=== PATIENT | male | born 1990 | race Caucasian/White ===

== ENCOUNTER 2017-02-19 14:22 | Emergency (ER) | payer BC, MEDICAID ==
[~2017-02-19] VITALS: Ht 182.9 cm; Wt 81.6 kg
[~2017-02-19 14:22] MED LIST: BONIVA150 MG ORAL; CLONIDINE HCL0.1 MG PO; DEPAKOTE250 MG PO; LAMICTAL25 MG PO; PEPCID20 MG ORAL; PHENERGAN6.25 MG/5 ORAL; RANITIDINE HCL150 MG ORAL; RISPERDAL2 MG PO; THORAZINE10 MG PO
[2017-02-19 14:36] VITALS: BP 134/65
--- NOTE | 2017-02-19 14:56 | Emergency Room Report ---
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 Patient the past 2-3 days has been spiking fevers Patient was given 1 Aleve And was brought to the emergency room Patient has had previous lobectomy secondary to pneumonia Patient has been having a cough There was no reports of diarrhea however the patient did have 3 episodes of vomiting throughout the day yesterday Patient himself has autism and history is limited from the patient Allergies: Coded Allergies: No Known Allergies (Unverified , 04/25/12) Patient History Limited by: medical condition Past Medical History: see triage record Pertinent Family History: unable to obtain Reviewed Nursing Documentation: PMH: Agreed, PSxH: Agreed Nursing Documentation-PMH Hx Diabetes: Yes Hx Seizures: Yes Review of Systems All Other Systems: limited - Other than the ones mentioned in the history of present illness all others are reviewed however they do stay limited due to the patient's mental status Physical Exam Vital Signs Date Time Temp Pulse Resp B/P (MAP) Pulse Ox O2 Delivery O2 Flow Rate FiO2 02/19/17 14:26 98.8 118 18 134/65 98 Room Air Sp02 EP Interpretation: reviewed, normal General Appearance: no apparent distress Head: normocephalic, atraumatic Eyes: bilateral eye PERRL, bilateral eye EOMI ENT: normal pharynx Neck: full range of motion, supple Respiratory: no respiratory distress, no retraction, crackles - in both lower lobes Cardiovascular #1: regular rate, rhythm Gastrointestinal: non tender, soft, no mass Musculoskeletal: normal inspection Neurologic: alert, responsive, abrasive grinder III-XII nml as tested Skin: other - Patient has several abrasions throughout, including the hands, family reports that these are not healing as normally as usual Lymphatic: no adenopathy Medical Decision Making Diagnostic Impression: Primary Impression: Pneumonia ER Course Multiple differentials considered Including but not limited to pneumonia, pharyngitis, appendicitis Patient chest x-ray shows bilateral infiltrates right side greater than left Patient was provided with IV antibiotics At this time blood work is appropriate sodium was minimally low Patient's fever has gone down to 99 respirations continued to be appropriate Patient saturating well no signs of any respiratory distress I did recommend initially admission to the hospital family reported the patient does not do well with hospitalization given the patient's appropriate breathing given the improvement with acute intervention will have initial outpatient trial Family will return with any changes or concerns Labs Test 02/19/17 15:26 White Blood Count 8.0 K/UL (4.8-10.8) Red Blood Count 4.70 M/UL (4.70-6.10) Hemoglobin 15.2 G/DL (14.2-18.0) Hematocrit 43.2 % (42.0-52.0) Mean Corpuscular Volume 92 FL (80-99) Mean Corpuscular Hemoglobin 32.4 PG (27.0-31.0) Mean Corpuscular Hemoglobin Concent 35.2 G/DL (32.0-36.0) Red Cell Distribution Width 11.0 % (11.6-14.8) Platelet Count 71 K/UL (150-450) Mean Platelet Volume 8.7 FL (6.5-10.1) Neutrophils (%) (Auto) % (45.0-75.0) Lymphocytes (%) (Auto) % (20.0-45.0) Monocytes (%) (Auto) % (1.0-10.0) Eosinophils (%) (Auto) % (0.0-3.0) Basophils (%) (Auto) % (0.0-2.0) Differential Total Cells Counted 100 Neutrophils % (Manual) 28 % (45-75) Lymphocytes % (Manual) 7 % (20-45) Monocytes % (Manual) 14 % (1-10) Eosinophils % (Manual) 0 % (0-3) Basophils % (Manual) 0 % (0-2) Band Neutrophils 51 % (0-8) Platelet Estimate Decreased Platelet Morphology Normal Red Blood Cell Morphology Anisocytosis 1+ Urine Color Brown Urine Appearance Clear Urine pH 6.5 (4.5-8.0) Urine Specific [place] 1.010 (1.005-1.035) Urine Protein 1+ (NEGATIVE) Urine Glucose (UA) Negative (NEGATIVE) Urine Ketones 2+ (NEGATIVE) Urine Occult Blood 4+ (NEGATIVE) Urine Nitrite Negative (NEGATIVE) Urine Bilirubin 1+ (NEGATIVE) Urine Ictotest Negative Urine Urobilinogen 12 MG/DL (0.0-1.0) Urine Leukocyte Esterase 1+ (NEGATIVE) Urine RBC 5-10 /HPF (0 - 0) Urine WBC 2-4 /HPF (0 - 0) Urine Squamous Epithelial Cells None /LPF (NONE/OCC) Urine Amorphous Sediment Few /LPF (NONE) Urine Bacteria Few /HPF (NONE) Sodium Level 126 MMOL/L (136-145) Potassium Level 3.7 MMOL/L (3.5-5.1) Chloride Level 90 MMOL/L (98-107) Carbon Dioxide Level 25 MMOL/L (21-32) Anion Gap 11 mmol/L (5-15) Blood Urea Nitrogen 15 mg/dL (7-18) Creatinine 1.1 MG/DL (0.55-1.30) Estimat Glomerular Filtration Rate > 60 mL/min (>60) Glucose Level 109 MG/DL (74-106) Lactic Acid Level 1.00 mmol/L (0.66-2.22) Calcium Level 9.2 MG/DL (8.5-10.1) Total Bilirubin 0.5 MG/DL (0.2-1.0) Aspartate Amino Transf (AST/SGOT) 41 U/L (15-37) Alanine Aminotransferase (ALT/SGPT) 29 U/L (12-78) Alkaline Phosphatase 59 U/L (46-116) Total Protein 7.8 G/DL (6.4-8.2) Albumin 3.8 G/DL (3.4-5.0) Globulin 4.0 g/dL Albumin/Globulin Ratio 0.9 (1.0-2.7) Rhythm Strip Diag. Results EP Interpretation: yes Rate: 67 Rhythm: NSR, no PVC's, no ectopy Chest X-Ray Diagnostic Results Chest X-Ray Diagnostic Results : Chest X-Ray Ordered: Yes # of Views/Limited/Complete: 1 View Indication: Shortness of Breath EP Interpretation: Yes Interpretation: no effusion, no pneumothorax, other - Bilateral lower infiltrates right greater than left Impression: Other - bilateral pneumonia Electronically Signed by: Vida Sanchez DO Last Vital Signs Date Time Temp Pulse Resp B/P (MAP) Pulse Ox O2 Delivery O2 Flow Rate FiO2 02/19/17 14:26 98.8 118 18 134/65 98 Room Air Status: improved Disposition: HOME, SELF-CARE Condition: Improved Scripts Ibuprofen* (MOTRIN*) 600 Mg Tablet 600 MG ORAL Q8H Y for For Pain, #30 TAB 0 Refills Prov: VIDA SANCHEZ D.OVj 02/19/17 Levofloxacin* (LEVAQUIN*) 750 Mg Tablet 750 MG ORAL DAILY for 10 Days, #10 TAB Prov: VIDA SANCHEZ D.O. 02/19/17 Additional Instructions: Patient is provided with the discharge instructions notified to follow up with primary doctor in the next 2-3 days otherwise return to the er with any worsening symptoms. Please note that this report is being documented using [employer] technology. This can lead to erroneous entry secondary to incorrect interpretation by the dictating instrument. VIDA SANCHEZ D.O. Feb 19, 2017 14:56
[2017-02-19] MEDS ORDERED: Acetaminophen 500mg (ES) tab ORAL ONE (15:00)
[2017-02-19 15:43] LABS: MEAN CORPUSCULAR HEMOGLOBIN 32.4 PG (27.0-31.0); MEAN CORPUSCULAR HGB CONC 35.2 G/DL (32.0-36.0); MEAN CORPUSCULAR VOLUME 92 FL (80-99); MEAN PLATELET VOLUME 8.7 FL (6.5-10.1); PLATELET COUNT 71 K/UL (150-450)
[2017-02-19 16:15] LABS: APPEARANCE,URINE CLEAR; KETONES,URINE 2+ (NEGATIVE); LEUKOCYTE ESTERASE ,URINE 1+ (NEGATIVE); NITRITE,URINE NEGATIVE (NEGATIVE); PH,URINE 6.5 (4.5-8.0); PROTEIN,URINE 1+ (NEGATIVE); UROBILINOGEN,URINE 12 MG/DL (0.0-1.0)
[2017-02-19 16:30] VITALS: BP 142/64
[2017-02-19 16:31] LABS: AMORPHOUS SEDIMENT,UR FEW /LPF; BACTERIA,URINE FEW /HPF
[2017-02-19 16:37] LABS: ICTOTEST NEGATIVE
--- NOTE | 2017-02-19 16:38 | Diagnostic Imaging Report ---
Indication: SOB Technique: One view of the chest Comparison: 10/09/2013 Findings: Interim development of dense consolidation of the right lung base, less extensive but still significant consolidation of the left mid and lower lung. No definite associated effusions. Normal heart size Impression: Bilateral right greater than left infiltrates, most likely representing pneumonia
[2017-02-19 16:44] LABS: ALANINE AMINOTRANSFERASE 29 U/L (12-78); ALBUMIN/GLOBULIN RATIO 0.9 (1.0-2.7); ANION GAP 11 mmol/L (5-15); ASPARTATE AMINO TRANSFERASE 41 U/L (15-37); CALCIUM 9.2 MG/DL (8.5-10.1); CARBON DIOXIDE 25 MMOL/L (21-32); CHLORIDE 90 MMOL/L (98-107); CREATININE 1.1 MG/DL (0.55-1.30); GLOMERULAR FILTRATION RATE > 60 mL/min (>60); POTASSIUM 3.7 MMOL/L (3.5-5.1); SODIUM 126 MMOL/L (136-145); TOTAL PROTEIN 7.8 G/DL (6.4-8.2)
[2017-02-19] MEDS ORDERED: IBUPROFEN600 MG ORAL (17:14)
[2017-02-19] MEDS ORDERED: LEVAQUIN750 MG ORAL (17:14)
[2017-02-19 17:30] VITALS: BP 140/65
[2017-02-19 17:43] LABS: BAND NEUTROPHILS % (MANUAL) 51 % (0-8); LYMPHOCYTES % (MANUAL) 7 % (20-45); NEUTROPHILS % (MANUAL) 28 % (45-75); TOTAL CELLS COUNTED 100
[2017-02-19 17:48] LABS: ANISOCYTOSIS 1+; BASOPHILS % (MANUAL) 0 % (0-2); EOSINOPHILS % (MANUAL) 0 % (0-3); PLATELET ESTIMATE DECREASED; PLATELET MORPHOLOGY NORMAL
== END 2017-02-19 17:30 | disposition home or self-care (01) ==
LOC: EMR 15:00
DX: J18.9 Pneumonia, unspecified organism (principal); E11.9 Type 2 diabetes mellitus without complications; S60.512A Abrasion of left hand, initial encounter; S60.511A Abrasion of right hand, initial encounter; X58.XXXA Exposure to other specified factors, initial encounter; Y92.9 Unspecified place or not applicable
CPT/HCPCS: 36415; 71010; 80053; 81003; 83605; 85007; 85025; 87040; 96361; 96365; 96366; 99284; J1956

== ENCOUNTER 2017-07-05 20:03 | Emergency (ER) | payer MEDICAID ==
[~2017-07-05] VITALS: Ht 185.4 cm; Wt 83.9 kg
[~2017-07-05 20:03] MED LIST changes: +IBUPROFEN600 MG ORAL; +LEVAQUIN750 MG ORAL
[2017-07-05 20:15] VITALS: BP 150/84
[2017-07-05 20:59] LABS: BASOPHILS % (AUTO) 1.1 % (0.0-2.0); EOSINOPHILS % (AUTO) 0.9 % (0.0-3.0); HEMOGLOBIN 14.9 G/DL (14.2-18.0); LYMPHOCYTES % (AUTO) 21.6 % (20.0-45.0); MEAN CORPUSCULAR VOLUME 88 FL (80-99); MONOCYTES % (AUTO) 17.8 % (1.0-10.0); NEUTROPHILS % (AUTO) 58.7 % (45.0-75.0); PLATELET COUNT 122 K/UL (150-450); RED BLOOD COUNT 4.55 M/UL (4.70-6.10); RED CELL DISTRIBUTION WIDTH 11.2 % (11.6-14.8); WHITE BLOOD COUNT 9.2 K/UL (4.8-10.8)
[2017-07-05 21:15] LABS: ANION GAP 8 mmol/L (5-15); BLOOD UREA NITROGEN 10 mg/dL (7-18); CALCIUM 8.4 MG/DL (8.5-10.1); CARBON DIOXIDE 27 MMOL/L (21-32); CHLORIDE 88 MMOL/L (98-107); CREATININE 0.6 MG/DL (0.55-1.30); POTASSIUM 3.4 MMOL/L (3.5-5.1); SODIUM 123 MMOL/L (136-145)
[2017-07-05 21:21] LABS: ALANINE AMINOTRANSFERASE 18 U/L (12-78); ALBUMIN 3.7 G/DL (3.4-5.0); ALBUMIN/GLOBULIN RATIO 1.1 (1.0-2.7); ALKALINE PHOSPHATASE 91 U/L (46-116); ASPARTATE AMINO TRANSFERASE 25 U/L (15-37); BILIRUBIN,TOTAL 0.3 MG/DL (0.2-1.0); CKMB 2.4 NG/ML (0.0-3.6); CREATINE KINASE 234 U/L (26-308)
[2017-07-05] MEDS ORDERED: LEVAQUIN750 MG ORAL (21:24)
[2017-07-05] MEDS ORDERED: Levofloxacin 500mg tab ORAL ONE (21:30)
[2017-07-05 21:40] VITALS: BP 148/82
[2017-07-05 21:50] VITALS: BP 148/82
--- NOTE | 2017-07-06 10:43 | Emergency Room Report ---
History of Present Illness General Chief Complaint: Flu Like Symptoms Source: Patient Present Illness HPI Patient presents by family for report of questionable fever and chills that happened several days ago Patient has had mild cough Had recent pneumonia and bacteremia At that time mom had waited for several weeks So with this episode she presented more quickly There was no reports of loss of consciousness Patient himself has developmental delay and not up to provide full history History is obtained from family No reports of rash Allergies: Coded Allergies: No Known Allergies (Unverified , 04/25/12) Patient History Limited by: medical condition Past Medical History: see triage record Pertinent Family History: none Reviewed Nursing Documentation: PMH: Agreed, PSxH: Agreed Nursing Documentation-PMH Hx Seizures: Yes Review of Systems All Other Systems: negative except mentioned in HPI Physical Exam Vital Signs Date Time Temp Pulse Resp B/P (MAP) Pulse Ox O2 Delivery O2 Flow Rate FiO2 07/05/17 20:06 97.7 98 18 164/85 98 Room Air 97.7 Sp02 EP Interpretation: reviewed, normal General Appearance: well appearing, no apparent distress Head: normocephalic, atraumatic Eyes: bilateral eye PERRL, bilateral eye EOMI ENT: hearing grossly normal, normal pharynx, TMs + canals normal, uvula midline Neck: full range of motion, supple, no meningismus, no bony tend Respiratory: lungs clear, normal breath sounds, no rhonchi, no respiratory distress, no retraction, no accessory muscle use Cardiovascular #1: normal peripheral pulses, regular rate, rhythm, no edema, no gallop, no JVD, no murmur Gastrointestinal: normal bowel sounds, non tender, soft, no mass, no organomegaly, non-distended, no guarding, no hernia, no pulsatile mass, no rebound Genitourinary: no CVA tenderness Musculoskeletal: normal inspection Neurologic: responsive, motor strength/tone normal, sensory intact Psychiatric: mood/affect normal Skin: warm/dry, palpation normal Lymphatic: normal inspection, no adenopathy Medical Decision Making Diagnostic Impression: Primary Impression: Pneumonia ER Course Patient had previous bilateral infiltrates With the presentation multiple imaging and initial blood work is initiated X-ray shows improved findings from previous blood work is at baseline levels Given the patient's clinical presentation he is diagnosed with clinical required pneumonia and placed on antibiotics for close outpatient follow-up Labs Test 07/05/17 20:35 White Blood Count 9.2 K/UL (4.8-10.8) Red Blood Count 4.55 M/UL (4.70-6.10) Hemoglobin 14.9 G/DL (14.2-18.0) Hematocrit 40.0 % (42.0-52.0) Mean Corpuscular Volume 88 FL (80-99) Mean Corpuscular Hemoglobin 32.7 PG (27.0-31.0) Mean Corpuscular Hemoglobin Concent 37.2 G/DL (32.0-36.0) Red Cell Distribution Width 11.2 % (11.6-14.8) Platelet Count 122 K/UL (150-450) Mean Platelet Volume 8.6 FL (6.5-10.1) Neutrophils (%) (Auto) 58.7 % (45.0-75.0) Lymphocytes (%) (Auto) 21.6 % (20.0-45.0) Monocytes (%) (Auto) 17.8 % (1.0-10.0) Eosinophils (%) (Auto) 0.9 % (0.0-3.0) Basophils (%) (Auto) 1.1 % (0.0-2.0) Sodium Level 123 MMOL/L (136-145) Potassium Level 3.4 MMOL/L (3.5-5.1) Chloride Level 88 MMOL/L (98-107) Carbon Dioxide Level 27 MMOL/L (21-32) Anion Gap 8 mmol/L (5-15) Blood Urea Nitrogen 10 mg/dL (7-18) Creatinine 0.6 MG/DL (0.55-1.30) Estimat Glomerular Filtration Rate > 60 mL/min (>60) Glucose Level 119 MG/DL (74-106) Calcium Level 8.4 MG/DL (8.5-10.1) Total Bilirubin 0.3 MG/DL (0.2-1.0) Aspartate Amino Transf (AST/SGOT) 25 U/L (15-37) Alanine Aminotransferase (ALT/SGPT) 18 U/L (12-78) Alkaline Phosphatase 91 U/L (46-116) Total Creatine Kinase 234 U/L (26-308) Creatine Kinase MB 2.4 NG/ML (0.0-3.6) Creatine Kinase MB Relative Index 1.0 Total Protein 7.1 G/DL (6.4-8.2) Albumin 3.7 G/DL (3.4-5.0) Globulin 3.4 g/dL Albumin/Globulin Ratio 1.1 (1.0-2.7) Chest X-Ray Diagnostic Results Chest X-Ray Diagnostic Results : Chest X-Ray Ordered: Yes # of Views/Limited/Complete: 1 View Indication: Shortness of Breath EP Interpretation: Yes Interpretation: no consolidation, no effusion, no pneumothorax Impression: No acute disease Electronically Signed by: Vida Stapleton DO Last Vital Signs Date Time Temp Pulse Resp B/P (MAP) Pulse Ox O2 Delivery O2 Flow Rate FiO2 07/05/17 21:50 97.9 86 17 148/82 99 Room Air 97.9 Status: improved Disposition: HOME, SELF-CARE Condition: Improved Scripts Levofloxacin* (LEVAQUIN*) 750 Mg Tablet 750 MG ORAL DAILY for 7 Days, TAB Prov: Vida Stapleton DO 07/05/17 Referrals: [facility],REFERR[facility] (PCP) Patient Instructions: Community-Acquired Pneumonia, Adult Additional Instructions: Patient is provided with the discharge instructions notified to follow up with primary doctor in the next 2-3 days otherwise return to the er with any worsening symptoms. Please note that this report is being documented using [employer] technology. This can lead to erroneous entry secondary to incorrect interpretation by the dictating instrument. Vida Stapleton DO Jul 06, 2017 10:43
--- NOTE | 2017-07-06 11:50 | Diagnostic Imaging Report ---
Indication: Chest pain, cough Technique: XRAY Chest 1v Comparison: 02/19/2017 Findings: Heart size and mediastinal contours are within normal limits for technique and stable compared to the prior exam. Previously seen airspace consolidations resolved. No definite focal airspace consolidation appreciated today's exam. No pleural effusion or pneumothorax. No acute osseous abnormality Impression: Resolution of the previously seen bilateral airspace opacities. No definite focal airspace opacity seen.
== END 2017-07-05 21:50 | disposition home or self-care (01) ==
LOC: EMR 21:36
DX: J18.9 Pneumonia, unspecified organism (principal)
CPT/HCPCS: 36415; 71045; 80053; 82550; 82553; 85025; 99283

== ENCOUNTER 2017-08-31 21:28 | Emergency (ER) | payer MEDICAID ==
[~2017-08-31] VITALS: Ht 182.9 cm; Wt 99.8 kg
--- NOTE | 2017-08-31 22:03 | Emergency Room Report ---
History of Present Illness General Chief Complaint: General Complaint Source: Family Member Present Illness HPI This is a 27-year-old male with a history of autism with severe disability and is nonverbal. Family brought him in because he's been increasing agitation. Usually when this happened he has urine tract infection or pneumonia. Patient was seen by his primary care doctor last week. Labs are unremarkable. He will was placed on 3 days of Cipro for urinary tract infection. Not getting better. Having diarrhea now. Mom noticed some blood when she wiped. No fever chills. No cough or congestion. Denies any other complaint. No relief with Thorazine or Ativan. Allergies: Coded Allergies: No Known Allergies (Unverified , 04/25/12) Patient History Past Medical History: see triage record, old chart reviewed Past Surgical History: none Pertinent Family History: none Social History: Denies: smoking Immunizations: other Reviewed Nursing Documentation: PMH: Agreed; PSxH: Agreed Nursing Documentation-PMH Hx Seizures: Yes Review of Systems Eye: Denies: eye pain, blurred vision ENT: Denies: ear pain, nose congestion, throat swelling Respiratory: Denies: cough, shortness of breath Cardiovascular: Denies: chest pain, palpitations Gastrointestinal: Denies: abdominal pain, diarrhea, nausea, vomiting Musculoskeletal: Denies: back pain, joint pain Skin: Denies: rash Neurological: Denies: headache, numbness Endocrine: Denies: increased thirst, increased urine Hematologic/Lymphatic: Denies: easy bruising All Other Systems: negative except mentioned in HPI Physical Exam Vital Signs Date Time Temp Pulse Resp B/P (MAP) Pulse Ox O2 Delivery O2 Flow Rate FiO2 08/31/17 21:41 98.3 87 18 138/72 98 Room Air 98.2 vitals normal Sp02 EP Interpretation: reviewed, normal General Appearance: well appearing, no apparent distress, alert Head: normocephalic, atraumatic Eyes: bilateral eye PERRL, bilateral eye EOMI ENT: hearing grossly normal, normal pharynx Neck: full range of motion, supple, no meningismus Respiratory: chest non-tender, lungs clear, normal breath sounds Cardiovascular #1: regular rate, rhythm, no murmur Gastrointestinal: normal bowel sounds, non tender, no mass, no organomegaly, no bruit, non-distended Musculoskeletal: back normal, gait/station normal, normal range of motion Neurologic: alert Psychiatric: other - agitated Skin: warm/dry Medical Decision Making Diagnostic Impression: Primary Impression: Agitation ER Course Is a 27-year-old male who has autism in with increasing agitation. He does have some diarrhea. This may be secondary to a gastroenteritis that's been going around in the community. This may cause his agitation. He has no evidence of urinary tract infection or pneumonia. We'll discharge home. He is much calmer now after dose of Ativan. Chest X-Ray Diagnostic Results Chest X-Ray Diagnostic Results : Chest X-Ray Ordered: Yes # of Views/Limited/Complete: 1 View Indication: Shortness of Breath EP Interpretation: Yes Interpretation: no consolidation, no effusion, no pneumothorax, no acute cardiopulmonary disease Impression: No acute disease Electronically Signed by: Kobe Kaufman MD Last Vital Signs Date Time Temp Pulse Resp B/P (MAP) Pulse Ox O2 Delivery O2 Flow Rate FiO2 08/31/17 21:41 98.3 87 18 138/72 98 Room Air 98.2 Status: improved Disposition: HOME, SELF-CARE Condition: Stable Referrals: NON PHYSICIAN (PCP) Additional Instructions: Follow-up with your doctor in 7 days. Return if symptom worsen. We will call if urine culture is positive. Return if worse. KOBE KAUFMAN M.D. August 31, 2017 22:03
[2017-08-31 22:09] LABS: APPEARANCE,URINE SLIGHTLY CLOUDY; BILIRUBIN, URINE NEGATIVE (NEGATIVE); COLOR,URINE AMBER; GLUCOSE, URINE (UA) NEGATIVE (NEGATIVE); KETONES,URINE 1+ (NEGATIVE); LEUKOCYTE ESTERASE ,URINE NEGATIVE (NEGATIVE); NITRITE,URINE NEGATIVE (NEGATIVE); PH,URINE 7 (4.5-8.0); PROTEIN,URINE NEGATIVE (NEGATIVE); UROBILINOGEN,URINE 1 MG/DL (0.0-1.0)
[2017-08-31] MEDS ORDERED: LORazepam Inj 2mg/ml 1ml IM ONE (22:15)
[2017-08-31 22:56] VITALS: BP 138/72
--- NOTE | 2017-09-01 14:06 | Diagnostic Imaging Report ---
Indication: Dyspnea Technique: XRAY Chest 1v Comparison: 07/05/2017 Findings: Heart size and mediastinal contours are stable compared to the prior exam. There is bronchovascular crowding at the bases. No definite focal airspace consolidation appreciated today's exam. No pleural effusion or pneumothorax. No acute osseous abnormality Impression: No definite radiographic evidence of acute cardiopulmonary disease.
== END 2017-08-31 22:58 | disposition home or self-care (01) ==
LOC: EMR 21:56
DX: R45.1 Restlessness and agitation (principal); R19.7 Diarrhea, unspecified; F84.0 Autistic disorder; R06.02 Shortness of breath
CPT/HCPCS: 71045; 81003; 96372; 99283

== ENCOUNTER 2019-01-16 23:36 | Emergency (ER) | payer MEDICAID ==
[~2019-01-16] VITALS: Ht 188 cm; Wt 72.6 kg
--- NOTE | 2019-01-17 | NUR ---
ED Nurse Note: Recieved pt from home, brought in by accounting advisory services manager with c/o abnormal labs and pain to BLE, needs u/s to r/o DVT, pt is autistic, brother at bedside also, pt does ambulate, mild swelling noted, waiting for imaging.
--- NOTE | 2019-01-17 00:23 | Emergency Room Report ---
History of Present Illness General Chief Complaint: Abnormal Labs Source: Family Member, Medical Record, Caregiver Present Illness HPI This is a 28-year-old male with a history of severe autism. He presents with chief lien out abnormal labs and leg pain. He had right calf pain few days ago. He had blood work done few days ago. He had some Calf tenderness and swelling. According to aniline press worker looks like muscle spasm. His d-dimer came back elevated. He was sent in here to get an ultrasound to rule out DVT. Unable to get any other history from patient. He appeared to be better now. Still has some mild swelling. No other complaint. No nausea no vomiting. No fever chills. Unknown shortness of breath. No family history of DVT. Allergies: Coded Allergies: No Known Allergies (Unverified , 04/25/12) Patient History Past Medical History: see triage record, old chart reviewed Past Surgical History: none Pertinent Family History: none Social History: Denies: smoking Immunizations: UTD Reviewed Nursing Documentation: PMH: Agreed; PSxH: Agreed Nursing Documentation-PMH Past Medical History: No History, Except For Hx Seizures: Yes Review of Systems Eye: Denies: eye pain, blurred vision ENT: Denies: ear pain, nose congestion, throat swelling Respiratory: Denies: cough, shortness of breath Cardiovascular: Denies: chest pain, palpitations Gastrointestinal: Denies: abdominal pain, diarrhea, nausea, vomiting Musculoskeletal: Reports: muscle pain; Denies: back pain, joint pain Skin: Denies: rash Neurological: Denies: headache, numbness Endocrine: Denies: increased thirst, increased urine Hematologic/Lymphatic: Denies: easy bruising All Other Systems: negative except mentioned in HPI Physical Exam Vital Signs Date Time Temp Pulse Resp B/P (MAP) Pulse Ox O2 Delivery O2 Flow Rate FiO2 01/16/19 23:41 98.4 90 16 153/82 (105) 95 Room Air Vitals with high blood pressure Sp02 EP Interpretation: reviewed, normal General Appearance: well appearing, no apparent distress, alert Head: normocephalic, atraumatic Eyes: bilateral eye PERRL, bilateral eye EOMI ENT: hearing grossly normal, normal pharynx Neck: full range of motion, supple, no meningismus Respiratory: chest non-tender, lungs clear, normal breath sounds Cardiovascular #1: regular rate, rhythm, no murmur Gastrointestinal: normal bowel sounds, non tender, no mass, no organomegaly, no bruit, non-distended Musculoskeletal: back normal, gait/station normal, normal range of motion, other - Trace edema to bilateral ankle. No calf tenderness. Size equal bilaterally. Psychiatric: mood/affect normal Medical Decision Making Diagnostic Impression: Primary Impression: Muscle cramps Additional Impression: Pain, lower extremity Qualified Codes: M79.604 - Pain in right leg; M79.605 - Pain in left leg ER Course Patient presents with lower extremity pain and cramping. No symptoms now. Elevated d-dimer is nonspecific. Ultrasound negative for DVT. Will discharge home. CT/MRI/US Diagnostic Results CT/MRI/US Diagnostic Results : Imaging Test Ordered: Bilateral lower extremity ultrasound Impression Negative for DVT per heel cutter Last Vital Signs Date Time Temp Pulse Resp B/P (MAP) Pulse Ox O2 Delivery O2 Flow Rate FiO2 01/16/19 23:41 98.4 90 16 153/82 (105) 95 Room Air Status: unchanged Disposition: HOME, SELF-CARE Condition: Stable Referrals: KARLA DELUNA (PCP) Additional Instructions: Follow-up with your doctor in 7 days. Return if worse. Kobe Kaufman MD Jan 17, 2019 00:23
[2019-01-17 00:45] VITALS: BP 153/82
--- NOTE | 2019-01-17 01:24 | Diagnostic Imaging Report ---
EXAM: US Duplex Right Lower Extremity Veins CLINICAL HISTORY: LEG PAIN TECHNIQUE: Real-time duplex ultrasound scan of the right lower extremity veins integrating B-mode two-dimensional vascular structure, Doppler spectral analysis, color flow Doppler imaging and compression. COMPARISON: No relevant prior studies available. FINDINGS: Deep veins: Unremarkable. No DVT in the visualized common femoral, femoral, proximal deep femoral or popliteal veins. The veins demonstrate normal color flow, are normally compressible, with normal phasic flow and or augmentation response. Superficial veins: Unremarkable. No thrombus in the visualized great saphenous vein. Soft tissues: No acute findings. No popliteal cyst. IMPRESSION: Normal right lower extremity duplex venous ultrasound.
== END 2019-01-17 00:45 | disposition home or self-care (01) ==
LOC: EMR 23:53
DX: M79.604 Pain in right leg (principal); M79.605 Pain in left leg; R25.2 Cramp and spasm; F84.0 Autistic disorder; R79.1 Abnormal coagulation profile
CPT/HCPCS: 93970; Z7502; 99284